=== PATIENT | male | born 1955 | race Caucasian/White ===

== ENCOUNTER → 2016-11-09 | Outpatient (CLI) | payer BC ==
[~2016-11-09] MED LIST: ACET-749 PO; CIPR-255 PO; FINA5TAB PO; IBUP-1050 PO; OXYC1TAB3 PO; PHEN-876 PO; SILD1TAB19 PO; SILD1TAB20 PO; TAMS0.4C38 PO
--- NOTE | 2016-11-09 12:23 | DIAGNOSTIC IMAGING REPORT ---
ULTRASOUND KIDNEYS AND BLADDER CLINICAL HISTORY: Urinary urgency. Nephrolithiasis. COMPARISON STUDY: Renal ultrasound dated 05/15/2014. TECHNIQUE: Real-time, grayscale, and color flow sonography of the kidneys and bladder is performed. Images are reviewed in the transverse and longitudinal planes. FINDINGS: Kidneys: The kidneys are normal in size and echotexture. The right kidney measures 12.3 x 4.0 x 5.1 cm and the left kidney measures 12.6 x 5.3 x 5.9 cm. There is no hydronephrosis. No shadowing renal calculi are identified. A subcentimeter cyst is suggested on the left. There is no sonographic evidence of contour deforming renal mass lesion. No perinephric fluid is identified. Bladder: The prostate gland is enlarged and heterogeneous. There is median lobe hypertrophy. The bladder wall appears mildly thickened and trabeculated, likely related to chronic outlet obstruction. Bilateral ureteral jets were seen. The post void volume measures 505 cc. Upper abdomen: Survey images of the liver demonstrates hepatic steatosis. IMPRESSION: 1. The kidneys are normal in size and without hydronephrosis. 2. Prostatomegaly with evidence of chronic bladder outlet obstruction. 3. The post void residual bladder volume measures 505 cc. 4. Hepatic steatosis is incidentally noted. Electronically signed by: Keith Palomino M.D. 11/09/2016 12:22 PM Dictated Date/Time: 11/09/2016 12:20 PM
== END | disposition home or self-care (01) ==
LOC: C.ULTRBC 11:17
PROVIDERS: ATTEND Urology
DX: R39.15 Urgency of urination (principal); N20.0 Calculus of kidney; N40.0 Benign prostatic hyperplasia without lower urinary tract symptoms; N32.0 Bladder-neck obstruction; K76.0 Fatty (change of) liver, not elsewhere classified

== ENCOUNTER → 2017-02-15 | Outpatient (CLI) | payer BC ==
[~2017-02-15] MED LIST changes: -ACET-749 PO; -CIPR-255 PO; -FINA5TAB PO; -IBUP-1050 PO; -OXYC1TAB3 PO; -PHEN-876 PO; -SILD1TAB19 PO; -SILD1TAB20 PO
[2017-02-15 11:13] LABS: BLOOD UREA NITROGEN 23 mg/dl (7-18); BUN/CREATININE RATIO 22.5 (10-20); CARBON DIOXIDE 30 mmol/L (21-32); CHLORIDE 105 mmol/L (98-107); CHOLESTEROL 225 mg/dl (0-200); GLUCOSE 87 mg/dl (70-99); POTASSIUM 3.7 mmol/L (3.5-5.1); SODIUM 139 mmol/L (136-145)
[2017-02-15 11:16] LABS: CHOLESTEROL/HDL RATIO 4.6; HDL CHOLESTEROL 49 mg/dl; LDL CHOLESTEROL CALCULATED 162 mg/dl; TRIGLYCERIDES 71 mg/dl (0-150); VERY LOW DENSITY LIPOPROT CALC 14 mg/dl
== END | disposition home or self-care (01) ==
LOC: C.LABBC 07:47
PROVIDERS: ATTEND Internal Medicine
DX: E78.5 Hyperlipidemia, unspecified (principal); N20.0 Calculus of kidney

== ENCOUNTER 2017-04-11 08:20 | Day surgery (SDC) | payer BC ==
[2017-03-29 13:16] VITALS: BMI 28.0
--- NOTE | 2017-03-29 13:44 | PAT Medication Instructions ---
Service Date Mar 29, 2017. Current Home Medication List Finasteride (Proscar), 2 TAB PO QDD Ibuprofen (Advil), 200 MG PO UD PRN for TOOTH PAIN Sildenafil Citrate (Pulmonary (Sildenafil Citrate), 1 DOSE PO UD Tamsulosin Hcl (Flomax), 0.4 MG PO QPM Medication Instructions For Your Scheduled Surgery - Hold the following medications per your surgeon's instructions: Ibuprofen (Advil), 200 MG PO UD PRN for TOOTH PAIN - Hold the following medications the morning of surgery: Sildenafil Citrate (Pulmonary (Sildenafil Citrate), 1 DOSE PO UD - Take the following medications as scheduled the night before surgery: Tamsulosin Hcl (Flomax), 0.4 MG PO QPM Finasteride (Proscar), 2 TAB PO QDD If you have any questions please call us at [phone] or [phone] or [phone]
[2017-03-29 14:23] LABS: BASO % 0.4 %; BASO ABS # 0.02 K/uL (0-0.2); COMPLETE YES; EOS % 0.9 %; HEMATOCRIT 44.1 % (42-52); LYMPH % 32.7 %; LYMPH ABS # 1.51 K/uL (1.2-3.4); MEAN CORPUSCULAR HEMOGLOBIN 32.5 pg (25-34); MEAN CORPUSCULAR HGB CONC 34.9 g/dl (32-36); MEAN PLATELET VOLUME 9.7 fL (7.4-10.4); MONO % 9.1 %; NEUT % 56.9 %; PLATELET COUNT 172 K/uL (130-400); RED BLOOD COUNT 4.74 M/uL (4.7-6.1); WHITE BLOOD COUNT 4.62 K/uL (4.8-10.8)
[2017-03-29 14:26] LABS: URINE APPEARANCE CLEAR (CLEAR); URINE BILIRUBIN NEG (NEG); URINE COLOR YELLOW; URINE NITRITE NEG (NEG); URINE PH 7.5 (4.5-7.5); URINE SPECIFIC GRAVITY 1.017 (1.000-1.030); UROBILINOGEN NEG (NEG)
[2017-03-29 14:31] LABS: MANUAL MICROSCOPIC REQUIRED? NO; REVIEW REQ? NO
--- NOTE | 2017-03-29 14:34 | DIAGNOSTIC IMAGING REPORT ---
TWO VIEW CHEST CLINICAL HISTORY: Preoperative examination. FINDINGS: PA and lateral chest radiographs are compared to study dated 05/12/2014. The cardiomediastinal silhouette is unremarkable. The lungs and pleural spaces are clear. There is no pneumothorax. The bony thorax appears intact. IMPRESSION: No active disease in the chest. Electronically signed by: Keith Palomino M.D. 03/29/2017 2:33 PM Dictated Date/Time: 03/29/2017 2:32 PM
[2017-03-29 16:36] LABS: BUN/CREATININE RATIO 17.7 (10-20); CALCIUM 8.8 mg/dl (8.5-10.1); CREATININE 1.05 mg/dl (0.60-1.40); POTASSIUM 4.5 mmol/L (3.5-5.1)
[2017-04-11] VITALS (7 sets, daily range): BP systolic 124–164; BP diastolic 74–89; PULSE 49–79; TEMP 36.3–37.1; O2SAT 96–100; Ht 172.7 cm; Wt 85.5 kg
[~2017-04-11] VITALS: Ht 172.7 cm; Wt 85.5 kg
[~2017-04-11 08:20] MED LIST changes: +CIPROFLOXACIN / D5W 400 MG IV SCH; +FENTANYL CITRATE INJ 50 MCG/1 ML 2 ML VIAL ONE; +FINA5TAB PO; +IBUP-1050 PO; +LACTATED RINGER'S 1000ML 1,000 ML IV SCH; +LIDOCAINE HCL 2% 2 ML VIAL (20MG/ML) ONE; +MIDAZOLAM HCL 1 MG/ML 2ML VIAL ONE; +PROPOFOL IV EMULSION 10 MG/ML 20 ML VIAL IV ONE; +SILD1TAB20 PO
--- NOTE | 2017-04-11 09:30 | History & Physical Bridge Note ---
H&P Re-Evaluation Bridge Note: I have examined the patient, reviewed the History & Physical and in the interval since the performance of the History & Physical I have noted the following changes of clinical significance: No changes noted
[2017-04-11] MEDS ORDERED: ACET-749 PO (09:48)
[2017-04-11] MEDS ORDERED: PHEN-876 PO (09:48)
[2017-04-11] MEDS ORDERED: CIPR-255 PO (09:48)
--- NOTE | 2017-04-11 09:49 | Discharge Instructions ---
Discharge Instructions Date of Service Apr 11, 2017. Admission Reason for Admission: Benign Prostatic Hyperplasia Discharge Discharge Diagnosis / Problem: BPH Discharge Goals Goal(s): Decrease discomfort, Improve function, Increase independence, Improve disease control Activity Recommendations Activity Limitations: resume your previous activity Lifting Limitations: none Exercise/Sports Limitations: none May Resume Sexual Activity: when tolerated Shower/Bathe: no limitations Driving or Machine Use: resume 1 day after discharge . Instructions / Follow-Up Instructions / Follow-Up Please keep your previously scheduled follow up appointment with Dr. Wray Discharge Diet Recommended Diet: Regular Diet Pending Studies Studies pending at discharge: no Laboratory Results Lipid Panel Test 02/15/17 07:48 Range/Units Triglycerides Level 71 0-150 mg/dl Cholesterol Level 225 H 0-200 mg/dl HDL Cholesterol 49 mg/dl Cholesterol/HDL Ratio 4.6 LDL Cholesterol, Calculated 162 mg/dl Medical Emergencies . Who to Call and When: Medical Emergencies: If at any time you feel your situation is an emergency, please call 911 immediately. . Non-Emergent Contact Non-Emergency issues call your: Urologist Call Non-Emergent contact if: you have a fever, temperature is above 101.5, your pain is not controlled, your pain is worsening . . "Provider Documentation" section prepared by Efren Matson. . VTE Core Measure Inpt VTE Proph given/why not?: Treatment not indicated [place] Drug Monitoring Program Search Results: see additional documentation Drug Monitoring Findings: system not responding
[2017-04-11] MEDS ORDERED: ONDANSETRON INJ 2 MG/ML 2 ML VIAL ONE (09:54)
--- NOTE | 2017-04-11 10:24 | Anesthesiology Progress Note ---
Anesthesia Post Op Note Date & Time Apr 11, 2017 at 10:24 Vital Signs Pain Intensity: 0 Vital Signs Past 12 Hours Date Time Temp Pulse Resp B/P (MAP) Pulse Ox O2 Delivery O2 Flow Rate FiO2 04/11/17 08:48 36.6 66 20 164/78 (106) 99 Room Air Notes Mental Status: alert / awake / arousable, participated in evaluation Pt Amnestic to Procedure: Yes Nausea / Vomiting: adequately controlled Pain: adequately controlled Airway Patency, RR, SpO2: stable & adequate BP & HR: stable & adequate Hydration State: stable & adequate Anesthetic Complications: no major complications apparent
[2017-04-11] MEDS ORDERED: PHENAZOPYRIDINE HCL 200 MG TAB PO STA (10:26)
[2017-04-11] MEDS ORDERED: KETOROLAC TROMETHAMINE 30 MG/ML VIAL IV. STA (10:26)
[2017-04-11] MEDS ORDERED: SODIUM CHLORIDE 0.9% 1000ML 1,000 ML IV SCH (10:26)
[2017-04-11] MEDS ORDERED: ATROPINE SULFATE 0.1 MG/ML 5ML SYR IV PRN (10:30)
[2017-04-11] MEDS ORDERED: EpHEDrine SULFATE INJ 50 MG/ML AMP IV PRN (10:30)
[2017-04-11] MEDS ORDERED: OXYCODONE/ACETAMINOPHEN 5-325 TAB PO PRN ×2 (10:30)
--- NOTE | 2017-04-11 10:31 | [facility] Operative Report ---
Operative Report Operative Date Apr 11, 2017. Pre-Operative Diagnosis Benign Prostatic Hyperplasia with lower urinary tract symptoms Post-Operative Diagnosis Benign Prostatic Hyperplasia with lower urinary tract symptoms Procedure(s) Performed Cystoscopy, Urolift Surgeon Dr. Wray Chef Manager Surgeon(s) none Estimated Blood Loss 5 CC Findings Lateral lobe hypertrophy, large prostate (estimated 90g) Specimens none per surgeon Drains bryan Anesthesia sedation Complication(s) None Disposition Recovery Room / PACU (stable) Indications symptomatic LUTS Description of Procedure Patient was identified in the preoperative holding area, appropriate informed consents were reviewed and completed and the patient was transported to the operating suite. Upon arrival he received appropriate preoperative antibiotics in the form of ciprofloxacin. Adequate sedation was achieved, and he was placed in dorsal lithotomy position where he was sterilely prepped and draped in standard fashion. I began the case by passing a cystoscope with 0 lens. Inspection of the urethra revealed healthy-appearing mucosa without evidence of strictures. Prostate was inspected, and he was noted to have lateral lobe hypertrophy. Full inspection of the bladder was carried out. There were no tumors, stones, or other abnormalities. I then exchanged visual obturator for the first uro-lift device. The first suture was deployed on the right side of the prostate approximately 1 cm in from the bladder neck. A mirror image suture was then deployed on the left. A third suture was placed adjacent to the verumontanum on the right. A fourth suture was placed in a mirror image of this location on the left. Given the length of his prostate, I felt 2 additional sutures were warranted. I placed an additional stitch on each side in the area between my first two stitches. There was excellent hemostasis. I reinspected the bladder and prostate and confirmed an excellent anterior channel. I elected to place a bryan catheter. I attest to the content of the Intraoperative Record and any orders documented therein. Any exceptions are noted below.
[2017-04-11] MEDS ORDERED: OXYC1TAB3 PO (11:02)
[2017-04-11] MEDS ORDERED: OXYCODONE/ACETAMINOPHEN 5-325 TAB ONE (11:30)
== END 2017-04-11 15:12 | disposition home or self-care (01) ==
LOC: C.ACU 08:20
PROVIDERS: ATTEND Urology
DX: N40.1 Benign prostatic hyperplasia with lower urinary tract symptoms (principal); N13.8 Other obstructive and reflux uropathy; E78.5 Hyperlipidemia, unspecified; E11.9 Type 2 diabetes mellitus without complications; Z98.818 Other dental procedure status; Z79.899 Other long term (current) drug therapy; Z98.890 Other specified postprocedural states